=== PATIENT | male | born 1965 | race Asian ===

== ENCOUNTER → 2020-03-12 15:12 | Outpatient (CLI) | payer OTHER, MEDICAID, SELFPAY ==
[2020-03-12 15:45] LABS: Basophils Absolute Auto 100 /uL (0-100); Basophils Percent Auto 1.1 % (0-2); Eosinophils Absolute Auto 300 /uL (0-450); Eosinophils Percent Auto 3.9 % (2-4); Hematocrit 45.4 % (41-53); Hemoglobin 15.5 g/dL (13.5-17.5); Lymphocytes Absolute Auto 2400 /uL (1100-4500); Lymphocytes Percent Auto 33.4 % (25-40); Mean Corpuscular Hemoglobin 23.8 PG (26-34); Mean Corpuscular Volume 69.9 fL (80-100); Monocytes Absolute Auto 600 /uL (0-900); Monocytes Percent Auto 7.7 % (3-14); Neutrophils Absolute Auto 4000 /uL (1500-7000); Neutrophils Percent Auto 53.9 % (50-75); Platelet Count 197 X10^3/uL (150-400); Red Cell Distribution Width 14.3 % (11.6-14.8); White Blood Cell Count 7.3 X10^3/uL (4.5-11.0)
[2020-03-12 15:48] LABS: Add Manual Diff / Slide Review SLIDE REVIEW
--- NOTE | 2020-03-12 15:48 | DI.RAD.S_ITS ---
PROCEDURE: XR KNEE RT 3V INDICATIONS: Right knee pain TECHNIQUE: 3 views of the knee were acquired. COMPARISON: None. FINDINGS: Bones: No fractures or dislocations. No suspicious bony lesions. Mild narrowing of the medial femoral tibial joint and tricompartmental periarticular osteophyte formation. Soft tissues: No joint effusion. No suspicious soft tissue calcifications. IMPRESSION: Mild joint degeneration. Dictated by: Kobe Givens Josué Interpreted: Chong Henderson MD on 03/12/2020 at 16:37 Approved by: Chong Henderson M.D. on 03/12/2020 at 17:13
[2020-03-12 16:11] LABS: Alanine Aminotransferase 55 IU/L (<50); Albumin 4.7 g/dL (3.5-5.0); Albumin Globulin Ratio 1.1 (1.0-2.8); Alkaline Phosphatase 60 U/L (38-126); Aspartate Aminotransferase 41 IU/L (17-59); Bilirubin Total 1.1 mg/dL (0.2-1.3); Blood Urea Nitrogen 19 mg/dL (9-20); Calcium 9.2 mg/dL (8.4-10.2); Carbon Dioxide 31 mmol/L (22-32); Chloride 102 mmol/L (98-107); Cholesterol 211 mg/dL (140-199); Estimated Glomerular Filt Rate > 60.0 mL/min (>60); Globulin 4.1 g/dL (1.7-4.1); Glucose 111 mg/dL (70-100); HDL Cholesterol 33 mg/dL (40-60); HEMOLYSIS < 15 (0-50); LDL Cholesterol Calculated 150 mg/dL (<100); Sodium 139 mmol/L (137-145); Total Protein 8.8 g/dL (6.3-8.2); Triglycerides 140 mg/dL (35-150)
[2020-03-12 16:14] LABS: Microcytosis 1+
[2020-03-12 16:15] LABS: Target Cells 1+
[2020-03-12 16:40] LABS: TSH w/ Reflex to FT4 2.53 uIU/mL (0.47-4.68)
[2020-03-12 16:41] LABS: Prostate Specific Antigen Scrn 0.292 ng/mL (0.1-4.0)
[2020-03-13 08:08] LABS: Rubeola Measles IgG > 300.0 AU/mL (Immune >16.4); Varicella IgG Antibody 604 index (Immune >165)
[2020-03-15 17:09] LABS: Rubella Antibody IgG 19.9 IU/mL (>15)
== END ==
PROVIDERS: PCP Family Medicine; Referring Provider Family Medicine; Visit Provider Family Medicine
DX: Z12.5 Encounter for screening for malignant neoplasm of prostate (principal); Z13.220 Encounter for screening for lipoid disorders; Z13.228 Encounter for screening for other metabolic disorders; Z13.29 Encounter for screening for other suspected endocrine disorder; Z23 Encounter for immunization; Z76.89 Persons encountering health services in other specified circumstances; Z92.29 Personal history of other drug therapy; M25.561 Pain in right knee
CPT/HCPCS: 36415; 73562; 80053; 80061; 84443; 85025; 86735; 86762; 86765; 86787; G0103